=== PATIENT | male | born 1995 | race Caucasian/White ===

== ENCOUNTER 2017-03-31 13:39 | Emergency (ER) | END 2017-03-31 16:13 | disposition home or self-care (01) | DX: M79.601 Pain in right arm (principal); J45.909 Unspecified asthma, uncomplicated; M79.604 Pain in right leg; R07.81 Pleurodynia; M25.551 Pain in right hip | CPT/HCPCS: 71100; 73030; 73060; 73090; 73510; 73550; J1885; Z7610 ==

== ENCOUNTER 2017-09-11 23:33 | Emergency (ER) | END 2017-09-12 05:00 | disposition home or self-care (01) ==

== ENCOUNTER 2017-09-26 11:20 | Emergency (ER) | END 2017-09-26 12:39 | disposition home or self-care (01) ==